=== PATIENT | female | born 1975 | race Caucasian/White ===

== ENCOUNTER 2018-01-10 18:51 | Emergency (ER) | payer BC ==
[~2018-01-10] VITALS: Ht 152.4 cm; Wt 69.9 kg
[~2018-01-10 18:51] MED LIST: FLEXERIL10 MG PO; MOTRIN600 MG PO; PERCOCET 5/31 TABLET PO; TRAMADOL HCL50 MG PO
[2018-01-10 20:39] LABS: HEMATOCRIT 47.8 % (36.0-46.0); HEMOGLOBIN 17.1 G/DL (11.9-15.5); MCH 32.6 PG (29.0-34.0); MCHC 35.8 G/DL (30.0-36.0); MCV 91.2 FL (83-99); PLATELET COUNT 254 K/uL (156-360); RBC DIS.WIDTH-CV 13.1 % (11.8-14.6); RBC DIS.WIDTH-SD 43.8 % (39-53); RED BLOOD COUNT 5.24 M/uL (3.80-5.20); WHITE BLOOD COUNT 14.2 K/uL (4.1-10.2)
[2018-01-10 20:51] LABS: PTT 26.8 SEC (25-37)
[2018-01-10 20:52] LABS: CHLORIDE 103 mEq/L (99-109); POTASSIUM 4.5 mEq/L (3.7-5.4); SODIUM 139 mEq/L (136-147)
[2018-01-10 20:54] LABS: GLUCOSE 104 mg/dL (70-99)
[2018-01-10 20:58] LABS: CREATININE 0.9 mg/dL (0.6-1.3); GFR ESTIMATE (CALCULATED) > 59 mL/min/
[2018-01-10 20:59] LABS: UREA NITROGEN (BUN) 17 mg/dL (9-23)
[2018-01-10] MEDS ORDERED: NAPROSYN500 MG PO (21:42)
[2018-01-10 22:01] VITALS: BP 121/83
== END 2018-01-10 22:01 | disposition home or self-care (01) ==
LOC: EME 18:51
PROVIDERS: Physician Assistant
DX: M25.561 Pain in right knee (principal); M79.604 Pain in right leg
CPT/HCPCS: 73564; 80048; 85027; 85610; 85730; 93971; 99281; 99284